=== PATIENT | male | born 1930 | race Caucasian/White ===

== ENCOUNTER 2018-02-25 09:52 | Observation (INO) ==
--- NOTE | 2018-02-25 10:45 | ED ---
HPI General Chief complaint: Syncope Stated complaint: Syncope x 2 days/Rt leg pain Time Seen by Provider: 02/25/18 10:42 Source: patient Mode of arrival: ambulatory Limitations: no limitations History of Present Illness HPI narrative: This 87-year-old male presents to the emergency department after a syncopal episode this morning. He had a syncopal episode yesterday also. Yesterday he was standing when he got very dizzy. He passed out quite abruptly and woke up on the floor. There were no witnesses to this event. He was continuing to feel very dizzy and he called his son to come get him. His son brought him to urgent care center where he was evaluated with blood work which was apparently normal. He did not have any chest pain or shortness of breath. This morning he was again standing in his kitchen and he had a second syncopal episode. This episode was preceded by dizziness for a few seconds but he does not feel dizzy now and has been able to walk. Yesterday he had prolonged dizziness which lasted for a couple of hours but then it ultimately resolved. He thinks that about 4 years ago he had an episode of syncope. He does not have any history of heart trouble he does take lovastatin. He had a hip replacement about 4 years ago and had a AAA repair 10-15 years ago. He has no known history of heart disease though his son thinks he had an irregular heartbeat one time when he went for a flight physical Related Data Home Medications Medication Instructions Recorded Confirmed lovastatin 40 mg PO DAILY 02/25/18 02/25/18 Allergies Allergy/AdvReac Type Severity Reaction Status Date / Time No Known Allergies Allergy Verified 02/25/18 11:24 Review of Systems ROS: all other systems reviewed are negative [facility] Medical History Medical History Atrial fibrillation (Acute) Enlarged prostate (Acute) High cholesterol (Acute) Surgical History Surgical History History of hip replacement (Acute) Hx of aortic aneurysm repair (Acute) Social History Social History Substance History: No History of Abuse Second Hand Smoke Exposure: No Smoking Status: Former smoker Tobacco Type: Cigarettes and Cigars How Often Do You Have a Drink Containing Alcohol: 4 or more times a week Recent Travel in [facility] within the Last 8 Weeks: No Recent Out of Country Travel within the Last 8 Weeks: No Exam Narrative Exam Narrative: GENERAL: Well-developed male SKIN: Focused skin assessment warm/dry. HEAD: Atraumatic. Normocephalic. EYES: Pupils equal and round. No scleral icterus. No injection or drainage. ENT: No nasal bleeding or discharge. Mucous membranes pink and moist. NECK: Trachea midline. No JVD. CARDIOVASCULAR: Irregular rate and rhythm. No murmur appreciated. RESPIRATORY: No accessory muscle use. Clear to auscultation. Breath sounds equal bilaterally. GASTROINTESTINAL: Abdomen soft, non-tender, nondistended. Hepatic and splenic margins not palpable. MUSCULOSKELETAL: No obvious deformities. No clubbing. No cyanosis. No edema. There is swelling and tenderness in the lateral aspect of the right ankle NEUROLOGICAL: Awake and alert. No obvious cranial nerve deficits. Motor grossly within normal limits. Normal speech. PSYCHIATRIC: Appropriate mood and affect; insight and judgment normal. Course Initial Documented Vital Signs Temperature 97.5 F L 02/25/18 09:58 Pulse Rate 94 H 02/25/18 09:58 Respiratory Rate 18 02/25/18 09:58 Blood Pressure 109/56 L 02/25/18 09:58 Pulse Oximetry 96 02/25/18 09:58 Last Documented Vital Signs Temperature 97.5 F L 02/25/18 10:50 Pulse Rate 89 02/25/18 12:48 Respiratory Rate 20 02/25/18 12:48 Blood Pressure 118/78 02/25/18 12:48 Pulse Oximetry 96 02/25/18 12:48 Medical Decision Making [facility] Narrative Medical decision making narrative: Patient appears stable at this time. His EKG does show atrial fibrillation with a rate of 92. The patient is not aware of history of atrial fibrillation. He is not having vertigo now but yesterday he had prolonged vertigo which lasted for several hours so I have ordered a MRI to assess for possible CVA Medical Screen Exam Complete: Yes Emergency Medical Condition: Yes Differential Diagnosis Differential Diagnosis: Differential includes dysrhythmia, syncope, aortic stenosis Lab Data Result diagrams: 02/25/18 10:00 02/25/18 10:00 Lab Results 02/25/18 02/25/18 02/25/18 Range/Units 10:00 10:00 10:00 CBC w Diff Auto diff final WBC 5.9 (4.0-11.0) th/mm3 RBC 4.98 (4.50-5.90) mil/mm3 Hgb 15.6 (13.0-17.0) gm/dL Hct 47.7 (39.0-51.0) % MCV 95.8 (80.0-100.0) fL MCH 31.3 (27.0-34.0) pg MCHC 32.7 (32.0-36.0) % RDW 12.2 (11.6-17.2) % Plt Count 128 L (150-450) th/mm3 MPV 8.6 (7.0-11.0) fL Neut % (Auto) 84.6 H (16.0-70.0) % Lymph % (Auto) 5.5 L (9.0-44.0) % [place] % (Auto) 9.4 H (0.0-8.0) % Eos % (Auto) 0.2 (0.0-4.0) % Baso % (Auto) 0.3 (0.0-2.0) % Neut # (Auto) 5.0 (1.8-7.7) th/mm3 Lymph # (Auto) 0.3 L (1.0-4.8) th/mm3 [place] # (Auto) 0.6 (0.0-0.9) th/mm3 Eos # (Auto) 0.0 (0.0-0.4) th/mm3 Baso # (Auto) 0.0 (0.0-0.2) th/mm3 WBC Differential . Differential Comment . PT 11.1 (9.8-11.6) sec INR 1.1 Ratio APTT 30.5 (23.4-31.7) sec Sodium 134 L (136-145) meq/L Potassium 3.9 (3.5-5.1) meq/L Chloride 99 (98-107) meq/L Carbon Dioxide 25.1 (21.0-32.0) meq/L Anion Gap 10 (5-15) meq/L BUN 11 (7-18) mg/dL Creatinine 0.86 (0.60-1.30) mg/dL Estimated GFR 84 L (>89) mL/min Random Glucose 130 H (74-106) mg/dL Calcium 8.0 L (8.5-10.1) mg/dL Magnesium 2.2 (1.5-2.5) mg/dL Total Bilirubin 1.6 H (0.2-1.0) mg/dL AST 34 (15-37) U/L ALT 22 (12-78) U/L Alkaline Phosphatase 65 (45-117) U/L Troponin I 0.02 (0.02-0.05) ng/mL B-Natriuretic Peptide (0-100) pg/mL Total Protein 6.5 (6.4-8.2) g/dL Albumin 3.4 (3.4-5.0) g/dL Ur Collection Type Urine Color (Yellw/Straw) Urine Clarity (Clear) Urine pH (5.0-8.5) Ur Specific [place] (1.002-1.035) Urine Protein (Neg-Trace) mg/dL Urine Glucose (UA) (Negative) mg/dL Urine Ketones (Negative) mg/dL Urine Occult Blood (Negative) Urine Nitrate (Negative) Urine Bilirubin (Negative) Urine Urobilinogen (Less than 2) mg/dL Ur Leukocyte Esterase (Negative) Urine RBC (0-3) /hpf Ur Squamous Epith Cells (0-5) /hpf Micro UA Comment Ur Microscopic Review Urine Culture Comments 02/25/18 02/25/18 Range/Units 10:00 11:40 CBC w Diff WBC (4.0-11.0) th/mm3 RBC (4.50-5.90) mil/mm3 Hgb (13.0-17.0) gm/dL Hct (39.0-51.0) % MCV (80.0-100.0) fL MCH (27.0-34.0) pg MCHC (32.0-36.0) % RDW (11.6-17.2) % Plt Count (150-450) th/mm3 MPV (7.0-11.0) fL Neut % (Auto) (16.0-70.0) % Lymph % (Auto) (9.0-44.0) % [place] % (Auto) (0.0-8.0) % Eos % (Auto) (0.0-4.0) % Baso % (Auto) (0.0-2.0) % Neut # (Auto) (1.8-7.7) th/mm3 Lymph # (Auto) (1.0-4.8) th/mm3 [place] # (Auto) (0.0-0.9) th/mm3 Eos # (Auto) (0.0-0.4) th/mm3 Baso # (Auto) (0.0-0.2) th/mm3 WBC Differential Differential Comment PT (9.8-11.6) sec INR Ratio APTT (23.4-31.7) sec Sodium (136-145) meq/L Potassium (3.5-5.1) meq/L Chloride (98-107) meq/L Carbon Dioxide (21.0-32.0) meq/L Anion Gap (5-15) meq/L BUN (7-18) mg/dL Creatinine (0.60-1.30) mg/dL Estimated GFR (>89) mL/min Random Glucose (74-106) mg/dL Calcium (8.5-10.1) mg/dL Magnesium (1.5-2.5) mg/dL Total Bilirubin (0.2-1.0) mg/dL AST (15-37) U/L ALT (12-78) U/L Alkaline Phosphatase (45-117) U/L Troponin I (0.02-0.05) ng/mL B-Natriuretic Peptide 106 H (0-100) pg/mL Total Protein (6.4-8.2) g/dL Albumin (3.4-5.0) g/dL Ur Collection Type Clean catch Urine Color Yellow (Yellw/Straw) Urine Clarity Clear (Clear) Urine pH 6.0 (5.0-8.5) Ur Specific [place] 1.010 (1.002-1.035) Urine Protein Negative (Neg-Trace) mg/dL Urine Glucose (UA) Negative (Negative) mg/dL Urine Ketones Negative (Negative) mg/dL Urine Occult Blood Trace (Negative) Urine Nitrate Negative (Negative) Urine Bilirubin Negative (Negative) Urine Urobilinogen 0.2 (Less than 2) mg/dL Ur Leukocyte Esterase Negative (Negative) Urine RBC 15-50 H (0-3) /hpf Ur Squamous Epith Cells 0-5 (0-5) /hpf Micro UA Comment Culture not ind Ur Microscopic Review Microscopic reviewed Urine Culture Comments Culture not ind Imaging Data Radiologist's impression: Chest X-Ray 02/25/18 10:42 CONCLUSION: 1. Apparent mild scarring at the right lung base. 2. No acute cardiopulmonary disease. Ankle X-Ray 02/25/18 10:45 CONCLUSION: Soft tissue swelling over lateral malleolus with no acute fracture or malalignment. Discharge Plan Discharge Disposition Patient Disposition: ED Admit(ED Internal Use Only) Discharge Condition Condition: Fair Discharge Order Discharge Orders: ED Use Only Admit Order (Routine); Ordered 02/25/18 Ordered By: Dami Mg Discharge Details Diagnosis: Syncope Physicians Team ED Provider: Dami Mg Primary Care Provider: NON STAFF,PROVIDER Attending Provider: Griffin Monteiro Discharge Interventions Interventions: ED Discharge Assessment Last Done: 02/25/18 13:03 Vital Signs Last Done: 02/25/18 12:48 Status ED Status: Admitted Observation Patient
[2018-02-25 11:05] LABS: Baso % (Auto) 0.3 % (0.0-2.0); Eos % (Auto) 0.2 % (0.0-4.0); Hematocrit 47.7 % (39.0-51.0); Hemoglobin 15.6 gm/dL (13.0-17.0); Lymph # (Auto) 0.3 th/mm3 (1.0-4.8); Lymph % (Auto) 5.5 % (9.0-44.0); Mean Corpuscular HGB Conc 32.7 % (32.0-36.0); Mean Corpuscular Hemoglobin 31.3 pg (27.0-34.0); Mean Corpuscular Volume 95.8 fL (80.0-100.0); Mean Platelet Volume 8.6 fL (7.0-11.0); Mono # (Auto) 0.6 th/mm3 (0.0-0.9); Mono % (Auto) 9.4 % (0.0-8.0); Neut % (Auto) 84.6 % (16.0-70.0); Platelet Count 128 th/mm3 (150-450); Red Blood Count 4.98 mil/mm3 (4.50-5.90); Red Cell Distribution Width 12.2 % (11.6-17.2); White Blood Count 5.9 th/mm3 (4.0-11.0)
--- NOTE | 2018-02-25 11:14 | XR ---
EXAM DATE: 02/25/2018 11:09 AM EST AGE/SEX: 87 years / Male INDICATIONS: Syncopal episode with fall yesterday, and again today. CLINICAL DATA: This is the patient's initial encounter. Patient reports that signs and symptoms have been present for 2 days and indicates a pain score of 0/10. MEDICAL/SURGICAL HISTORY: None. Abdominal aortic aneurysm repair. Hip replacement. COMPARISON: PO[facility], CT CHEST W/O CONTRAST, 10/02/2016. . FINDINGS: A single AP view of the chest demonstrates the lungs to be symmetrically aerated without evidence of mass, new confluent infiltrate or effusion. There is mild patchy opacity again noted in the right aurora ng base most characteristic of scarring. The cardiomediastinal contours are unremarkable. Osseous st ructures are intact. CONCLUSION: 1. Apparent mild scarring at the right lung base. 2. No acute cardiopulmonary disease. Electronically signed by: Griffin Shaffer MD 02/25/2018 11:13 AM EST
[2018-02-25 11:21] LABS: Activated Partial Thrombo Time 30.5 sec (23.4-31.7); INR 1.1 Ratio; Prothrombin Time 11.1 sec (9.8-11.6)
--- NOTE | 2018-02-25 11:22 | XR ---
EXAM DATE: 02/25/2018 11:07 AM EST AGE/SEX: 87 years / Male INDICATIONS: Left lateral ankle pain/swelling post syncopal episode with fall yesterday. CLINICAL DATA: This is the patient's initial encounter. Patient reports that signs and symptoms have been present for 2 days and indicates a pain score of 7/10. MEDICAL/SURGICAL HISTORY: None. Abdominal aortic aneurysm repair. Hip replacement. COMPARISON: No prior exams available for comparison. FINDINGS: Multiple views of the right ankle were obtained and demonstrate soft tissue swelling over lateral mal leolus with no acute fracture or malalignment. The ankle mortise is intact. There is a small spur off the inferior calcaneus at the site of attachment of plantar aponeurosis. There is diffuse osteopenia . CONCLUSION: Soft tissue swelling over lateral malleolus with no acute fracture or malalignment. Electronically signed by: Griffin Shaffer MD 02/25/2018 11:21 AM EST
[2018-02-25 11:31] LABS: Chloride 99 meq/L (98-107); Potassium 3.9 meq/L (3.5-5.1); Sodium 134 meq/L (136-145)
[2018-02-25 11:35] LABS: Albumin 3.4 g/dL (3.4-5.0); Anion Gap 10 meq/L (5-15); Blood Urea Nitrogen 11 mg/dL (7-18); Carbon Dioxide 25.1 meq/L (21.0-32.0); Glucose,Random 130 mg/dL (74-106); Magnesium 2.2 mg/dL (1.5-2.5)
[2018-02-25 11:38] LABS: Alanine Aminotransferase 22 U/L (12-78); Aspartate Aminotransferase 34 U/L (15-37); Glomerular Filtration Rate 84 mL/min (>89)
[2018-02-25 11:39] LABS: Total Protein 6.5 g/dL (6.4-8.2)
[2018-02-25 11:41] LABS: Alkaline Phosphatase 65 U/L (45-117)
[2018-02-25 11:43] LABS: Troponin I 0.02 ng/mL (0.02-0.05)
[2018-02-25 11:47] LABS: Bilirubin,Urine Negative (Negative); Clarity,Urine Clear (Clear); Color,Urine Yellow (Yellw/Straw); Glucose,Urine (UA) Negative (Negative); Leukocyte Esterase,Urine Negative (Negative); Nitrite,Urine Negative (Negative); Urobilinogen,Urine 0.2 mg/dL (Less than 2)
[2018-02-25 11:53] LABS: Squamous Epithelial Cell,Urine 0-5 /hpf (0-5)
[2018-02-25] MEDS ORDERED: Gadobutrol PF 10 MMOL/10 ML Vial (for RAD) IV.SIG ONE (12:03)
--- NOTE | 2018-02-25 12:13 | ECG ---
Date Performed: 02/25/2018 Time Performed: 10:50:43 PTAGE: 87 years EKG: ATRIAL FIBRILLATION LEFT ANTERIOR FASCICULAR BLOCK ABNORMAL ECG PREVIOUS TRACING : 05/21/2014 18.41 DOCTOR: Avery Ramirez Interpretating Date/Time 02/25/2018 12:11:41
--- NOTE | 2018-02-25 16:43 | P.HP ---
History of Present Illness Primary Care Physician: PROVIDER NON STAFF Chief Complaint: Syncope History of Present Illness: This is an 87-year-old male patient with a known medical history of BPH and hyperlipidemia presented to the ED status post syncopal episode at home. Patient states that he lives at home with his who has Alzheimer's, states that around Saturday night he noticed some chills and shakiness, he states he went to bed and awoke on Saturday morning and felt nauseous as well as dizzy, he states that he awoke on the floor. Does not recall events leading up to the syncopal episode. He states that on Saturday morning he had another syncopal episode and lost consciousness. At that time his found him and called their son who recommended evaluation in the emergency department. Patient denies hitting his head. He does state that he has been drinking and eating well. Denies any recent illness including fever, headache, chest pain, shortness of breath, abdominal pain, nausea, vomiting, diarrhea or dysuria. He follows closely with his PCP, was last seen 2 weeks ago and denies any new changes to his medications. Patient states that he does have a remote history of an arrhythmia, son is at bedside he states that he does possibly have an arrhythmia although is unsure of this. He does not follow with a switching operator. He does admit to a AAA repair roughly 15 years ago. At the time of assessment tonight patient is much improved, symptoms have resolved. EKG is showing controlled atrial fibrillation. Vital signs are stable. We will add a head CT as well as a neuro workup. Continue on cardiac telemetry. - Diagnosis (1) Syncope Review of Systems All other systems reviewed negative except as stated [facility] - History History Provided By: Patient - Medical History Medical History: Medical History (Last Reviewed 02/25/18 @ 16:52 by Amalia Montez) Atrial fibrillation Enlarged prostate High cholesterol - Surgical History Surgical History: Surgical History (Last Reviewed 02/25/18 @ 16:52 by Amalia Montez) History of hip replacement Hx of aortic aneurysm repair - Family History Family History: Family History (Last Updated 02/25/18 @ 16:52 by Amalia Montez) Other Family history non-contributory - Social History I have reviewed the patient's Social History: Yes - Tobacco History Second Hand Smoke Exposure: No Tobacco Use In Past 30 Days: No Smoking Status: Former smoker Tobacco Type: Cigarettes - Alcohol History How Often Do You Have a Drink Containing Alcohol: Never - Substance Use History Substance History: No History of Abuse - Travel History Recent Travel in the [place] Within the Last 8 Weeks: No Recent Travel Out of the Country Within the Last 8 Weeks: No - Immunization History Tetanus Immunization: Unsure Medications and Allergies Allergies Allergy/AdvReac Type Severity Reaction Status Date / Time No Known Allergies Allergy Verified 02/25/18 11:24 Home Medications Medication Instructions Recorded Confirmed Type lovastatin 40 mg PO DAILY 02/25/18 02/25/18 History Exam Vital signs: Vital Signs 02/25/18 09:58 02/25/18 10:50 02/25/18 10:57 Temperature 97.5 F L 97.5 F L Pulse Rate 94 H 94 H 80 Respiratory Rate 18 20 Blood Pressure 109/56 L 124/75 Pulse Oximetry 96 95 95 02/25/18 12:01 02/25/18 12:47 02/25/18 12:48 Temperature Pulse Rate 94 H 89 89 Respiratory Rate 20 20 Blood Pressure 114/68 118/78 Pulse Oximetry 96 96 Intake & Output 02/24/18 02/25/18 02/25/18 18:59 06:59 18:59 Weight 80 kg Narrative: GENERAL: Well-developed, well-nourished patient in [facility]. SKIN: Warm and dry. No rash. HEAD: Normocephalic. Atraumatic. EYES: Pupils equal and round. No scleral icterus. No injection or drainage. ENT: No nasal bleeding or discharge. Mucous membranes pink and moist. NECK: Supple. Trachea midline. CARDIOVASCULAR: Irregularly irregular rhythm. No murmur appreciated. RESPIRATORY: No accessory muscle use. Clear to auscultation. Breath sounds equal bilaterally. GASTROINTESTINAL: Abdomen soft, non-tender, nondistended. Normoactive bowel sounds x4. MUSCULOSKELETAL: No obvious deformities. Extremities without clubbing, cyanosis , or edema. NEUROLOGICAL: Awake and alert. No obvious cranial nerve deficits. Motor grossly within normal limits. 5/5 muscle strength in bilateral upper and lower extremities. Normal speech. PSYCHIATRIC: Appropriate mood and affect; insight and judgment normal. Results - Labs CBC & Chem 7: 02/25/18 10:00 02/25/18 10:00 Labs: Laboratory Results - last 24 hr 02/25/18 02/25/18 02/25/18 10:00 10:00 10:00 CBC w Diff Auto diff final WBC 5.9 RBC 4.98 Hgb 15.6 Hct 47.7 MCV 95.8 MCH 31.3 MCHC 32.7 RDW 12.2 Plt Count 128 L MPV 8.6 Neut % (Auto) 84.6 H Lymph % (Auto) 5.5 L [place] % (Auto) 9.4 H Eos % (Auto) 0.2 Baso % (Auto) 0.3 Neut # (Auto) 5.0 Lymph # (Auto) 0.3 L [place] # (Auto) 0.6 Eos # (Auto) 0.0 Baso # (Auto) 0.0 WBC Differential . Differential Comment . PT 11.1 INR 1.1 APTT 30.5 Sodium 134 L Potassium 3.9 Chloride 99 Carbon Dioxide 25.1 Anion Gap 10 BUN 11 Creatinine 0.86 Estimated GFR 84 L Random Glucose 130 H Calcium 8.0 L Magnesium 2.2 Total Bilirubin 1.6 H AST 34 ALT 22 Alkaline Phosphatase 65 Troponin I 0.02 B-Natriuretic Peptide Total Protein 6.5 Albumin 3.4 Ur Collection Type Urine Color Urine Clarity Urine pH Ur Specific [place] Urine Protein Urine Glucose (UA) Urine Ketones Urine Occult Blood Urine Nitrate Urine Bilirubin Urine Urobilinogen Ur Leukocyte Esterase Urine RBC Ur Squamous Epith Cells Micro UA Comment Ur Microscopic Review Urine Culture Comments 02/25/18 02/25/18 10:00 11:40 CBC w Diff WBC RBC Hgb Hct MCV MCH MCHC RDW Plt Count MPV Neut % (Auto) Lymph % (Auto) [place] % (Auto) Eos % (Auto) Baso % (Auto) Neut # (Auto) Lymph # (Auto) [place] # (Auto) Eos # (Auto) Baso # (Auto) WBC Differential Differential Comment PT INR APTT Sodium Potassium Chloride Carbon Dioxide Anion Gap BUN Creatinine Estimated GFR Random Glucose Calcium Magnesium Total Bilirubin AST ALT Alkaline Phosphatase Troponin I B-Natriuretic Peptide 106 H Total Protein Albumin Ur Collection Type Clean catch Urine Color Yellow Urine Clarity Clear Urine pH 6.0 Ur Specific [place] 1.010 Urine Protein Negative Urine Glucose (UA) Negative Urine Ketones Negative Urine Occult Blood Trace Urine Nitrate Negative Urine Bilirubin Negative Urine Urobilinogen 0.2 Ur Leukocyte Esterase Negative Urine RBC 15-50 H Ur Squamous Epith Cells 0-5 Micro UA Comment Culture not ind Ur Microscopic Review Microscopic reviewed Urine Culture Comments Culture not ind - Imaging Impressions Chest X-Ray 02/25/18 10:42 CONCLUSION: 1. Apparent mild scarring at the right lung base. 2. No acute cardiopulmonary disease. Ankle X-Ray 02/25/18 10:45 CONCLUSION: Soft tissue swelling over lateral malleolus with no acute fracture or malalignment. Caprini VTE Risk Assessment Caprini VTE Risk Assessment: Moderate/High Risk (score >= 2) Caprini Risk Assessment Model: Point Value = 1 Point Value = 2 Point Value = 3 Point Value = 5 Age 41-60 Minor surgery BMI > 25 kg/m2 Swollen legs Varicose veins or History of unexplained or recurrent spontaneous Oral contraceptives or hormone replacement Sepsis (< 1 month) Serious lung disease, including pneumonia (< 1 month) Abnormal pulmonary function Acute myocardial infarction Congestive heart failure (< 1 month) History of inflammatory bowel disease Medical patient at bed rest Age 61-74 Arthroscopic surgery Major open surgery (> 45 min) Laparoscopic surgery (> 45 min) Malignancy Confined to bed (> 72 hours) Immobilizing plaster cast Central venous access Age >= 75 History of VTE Family history of VTE Factor V Leiden Prothrombin 22504Y Lupus anticoagulant Anticardiolipin antibodies Elevated serum homocysteine Heparin-induced thrombocytopenia Other congenital or acquired thrombophilia Stroke (< 1 month) Elective arthroplasty Hip, pelvis, or leg fracture Acute spinal cord injury (< 1 month) Prophylaxis Regimen: Total Risk Factor Score Risk Level Prophylaxis Regimen 0-1 Low Early ambulation 2 Moderate Order ONE of the following: *Sequential Compression Device (SCD) *Heparin 5000 units SQ BID 3-4 Higher Order ONE of the following medications: *Heparin 5000 units SQ TID *Enoxaparin/Lovenox 40 mg SQ daily (WT < 150 kg, CrCl > 30 mL/min) *Enoxaparin/Lovenox 30 mg SQ daily (WT < 150 kg, CrCl > 10-29 mL/min) *Enoxaparin/Lovenox 30 mg SQ BID (WT < 150 kg, CrCl > 30 mL/min) AND/OR *Sequential Compression Device (SCD) 5 or more Highest Order ONE of the following medications: *Heparin 5000 units SQ TID (Preferred with Epidurals) *Enoxaparin/Lovenox 40 mg SQ daily (WT < 150 kg, CrCl > 30 mL/min) *Enoxaparin/Lovenox 30 mg SQ daily (WT < 150 kg, CrCl > 10-29 mL/min) *Enoxaparin/Lovenox 30 mg SQ BID (WT < 150 kg, CrCl > 30 mL/min) AND *Sequential Compression Device (SCD) Assessment and Plan - Assessment (1) Syncope Code(s): R55 - Syncope and collapse Status: Acute - Plan This is an 87-year-old male patient who presented to the ED with: Syncopal episode x 2 Rule out neurological versus cardiovascular etiology -Patient admits to 2 syncopal episodes in the last 2 days. Admits to associated dizziness as well as nausea. -Will add a head CT to workup. Start neuro workup including carotid ultrasound , echocardiogram, TSH, lipid profile. -Will check orthostatic blood pressures. -EKG reviewed showing controlled atrial fibrillation. Patient does admit to a remote history of arrhythmia although it is unsure if this was atrial fibrillation or not. Denies any anticoagulation use. -Will continue on cardiac telemetry, monitor for any arrhythmias overnight. May consider consultation to cardiology/neurology depending on workup results. Does not follow with a switching operator. -BMP reviewed, essentially unremarkable. UA negative. Will trend troponins. Initial troponin negative. -Ensure hydration, gentle hydration. -PT evaluation ordered, pending. -Supportive care. Right ankle pain and swelling -Suspect secondary to syncopal episode. -Right x-ray of ankle reviewed showing soft tissue swelling no acute fracture. -Supportive care, encourage elevation. Hyperlipidemia, chronic: Will continue home statin. DVT prophylaxis: SCDs. Heparin. (1) Syncope Qualifiers: Syncope type: unspecified Qualified Code(s): R55 - Syncope and collapse
[2018-02-25] MEDS ORDERED: Sod Chloride 0.9% Inj 1,000 ML IV.CONT SCH (17:00)
--- NOTE | 2018-02-25 17:31 | MR ---
EXAM DATE: 02/25/2018 5:24 PM EST AGE/SEX: 87 years / Male INDICATIONS: Vertigo. SYNCOPE TIMES 2. CLINICAL DATA: This is the patient's initial encounter. Patient reports that signs and symptoms have been present for 2 days and indicates a pain score of 0/10. MEDICAL/SURGICAL HISTORY: . Afib. Abdominal aortic aneurysm repair. Hip surgery. COMPARISON: No prior exams available for comparison. TECHNIQUE: Multiplanar, multisequence examination of the brain was performed without and with 9 ml Ga davist (gadobutrol) contrast as a single exam dose. FINDINGS: Cerebrum: The ventricles are normal for age with atrophy. No evidence of midline shift, mass lesion , hemorrhage or acute infarction. No extraaxial fluid collections are seen. The pituitary gland and suprasellar cistern are normal in configuration. White Matter: Chronic small vessel ischemic changes are noted with increased signal in the periventr icular white matter. Posterior Fossa: The cerebellum and brainstem are intact. The 4th ventricle is midline. The cerebel lopontine angle is unremarkable. The cerebellar tonsils are normal in position. Diffusion Imaging: No focal areas of restricted diffusion are seen. No evidence of acute infarction . Extracranial: The visualized portions of the orbits are unremarkable. Mucosal thickening is present in the left maxillary sinus. Post Contrast: No abnormal areas of parenchymal or dural enhancement. No evidence of blood-brain ba rrier breakdown. CONCLUSION: 1. No acute hemorrhage, mass or stroke. 2. Atrophy and chronic small vessel ischemic change. Electronically signed by: Griffin Shaffer MD 02/25/2018 5:29 PM EST
[2018-02-25 18:13] LABS: Troponin I 0.02 ng/mL (0.02-0.05)
--- NOTE | 2018-02-25 18:18 | CT ---
EXAM DATE: 02/25/2018 6:12 PM EST AGE/SEX: 87 years / Male INDICATIONS: Syncope. CLINICAL DATA: This is the patient's initial encounter. Patient reports that signs and symptoms have been present for 1 day and indicates a pain score of 0/10. MEDICAL/SURGICAL HISTORY: Hypercholesterolemia. Atrial fibrillation. Abdominal aortic aneurysm rep air. Hip repair. RADIATION DOSE: 59.31 CTDI (mGy) COMPARISON: No prior exams available for comparison. TECHNIQUE: CT of the head without contrast. Using automated exposure control and adjustment of the mA and/or kV according to patient size, radiation dose was kept as low as reasonably achievable to ob tain optimal diagnostic quality images. DICOM format image data is available electronically for revi ew and comparison. FINDINGS: Cerebrum: The ventricles are normal for age. Areas of low-density in the periventricular white matte r. No evidence of midline shift, mass lesion, hemorrhage or acute infarction. No extraaxial fluid co llections are seen. Posterior Fossa: The cerebellum and brainstem are intact. The 4th ventricle is midline. The cerebe llopontine angle is unremarkable. Extracranial: The visualized portion of the orbits is intact. Skull: The calvaria is intact. No evidence of skull fracture. CONCLUSION: 1. Nonspecific white matter changes. . Electronically signed by: Jorge Kendall MD 02/25/2018 6:17 PM EST
[2018-02-25 18:27] LABS: CKMB Percent 0.2 % (0.0-4.0); Creatine Kinase MB 1.5 ng/mL (0.5-3.6)
[2018-02-25 22:57] LABS: Troponin I 0.03 ng/mL (0.02-0.05)
[2018-02-25 23:08] LABS: CKMB Percent 0.2 % (0.0-4.0); Creatine Kinase MB 1.1 ng/mL (0.5-3.6)
[2018-02-26] MEDS ORDERED: Heparin - SQ 10,000 UNITS/ML Vial SQ SCH (09:00)
[2018-02-26 10:29] LABS: Chol/HDL Ratio 3.62 Ratio; HDL Cholesterol 44.7 mg/dL (40.0-60.0)
--- NOTE | 2018-02-26 11:40 | P.PNIM ---
Subjective Interval history: Follow up syncopal episode. Patient seen and examined, sitting in bed comfortably no apparent distress. No acute events overnight. No palpitations or chest pain. No shortness of breath. Eating well without any abdominal pain nausea or vomiting. Attempting to obtain records from PCP to determine if patient has a history of H fibrillation and if he has a machine adjuster leader, patient is unaware. Vital signs stable. Afebrile. Physical Exam Vital signs: Vital Signs 02/25/18 12:01 02/25/18 12:47 02/25/18 12:48 Temperature Pulse Rate 94 H 89 89 Respiratory Rate 20 20 Blood Pressure 114/68 118/78 Pulse Oximetry 96 96 02/25/18 18:00 02/25/18 20:00 02/26/18 00:00 Temperature 98.0 F 99.8 F H 100.2 F H Pulse Rate 93 H 94 H 105 H Respiratory Rate 18 18 18 Blood Pressure 127/74 132/83 121/67 Pulse Oximetry 97 94 L 95 02/26/18 04:00 02/26/18 08:00 Temperature 98.1 F 96.1 F L Pulse Rate 95 H 99 H Respiratory Rate 18 18 Blood Pressure 129/76 141/78 H Pulse Oximetry 95 96 Intake & Output 02/25/18 02/26/18 02/26/18 18:59 06:59 18:59 Intake Total 1480 / 1480 Output Total 1800 / 1800 Balance -320 / -320 Weight 80 kg 55.8 kg Intake: Oral 1480 / 1480 Output: Urine 1800 / 1800 Narrative: GENERAL: Well-developed, well-nourished patient in [facility]. SKIN: Warm and dry. No rash. HEAD: Normocephalic. Atraumatic. EYES: Pupils equal and round. No scleral icterus. No injection or drainage. ENT: No nasal bleeding or discharge. Mucous membranes pink and moist. NECK: Supple. Trachea midline. CARDIOVASCULAR: Irregularly irregular rhythm. No murmur appreciated. RESPIRATORY: No accessory muscle use. Clear to auscultation. Breath sounds equal bilaterally. GASTROINTESTINAL: Abdomen soft, non-tender, nondistended. Normoactive bowel sounds x4. MUSCULOSKELETAL: No obvious deformities. Extremities without clubbing, cyanosis , or edema. NEUROLOGICAL: Awake and alert. No obvious cranial nerve deficits. Motor grossly within normal limits. 5/5 muscle strength in bilateral upper and lower extremities. Normal speech. PSYCHIATRIC: Appropriate mood and affect; insight and judgment normal. Results - Labs CBC & Chem 7: 02/25/18 10:00 02/25/18 10:00 Laboratory Results - last 24 hr 02/25/18 02/25/18 02/25/18 10:00 10:00 11:40 Carbon Dioxide 25.1 Anion Gap 10 BUN 11 Creatinine 0.86 Estimated GFR 84 L Random Glucose 130 H Calcium 8.0 L Magnesium 2.2 Total Bilirubin 1.6 H AST 34 ALT 22 Alkaline Phosphatase 65 Total Creatine Kinase CK-MB (CK-2) CK-MB (CK-2) % Troponin I 0.02 B-Natriuretic Peptide 106 H Total Protein 6.5 Albumin 3.4 Triglycerides Cholesterol LDL Cholesterol, Calc HDL Cholesterol Cholesterol/HDL Ratio TSH Ur Collection Type Clean catch Urine Color Yellow Urine Clarity Clear Urine pH 6.0 Ur Specific Kerby 1.010 Urine Protein Negative Urine Glucose (UA) Negative Urine Ketones Negative Urine Occult Blood Trace Urine Nitrate Negative Urine Bilirubin Negative Urine Urobilinogen 0.2 Ur Leukocyte Esterase Negative Urine RBC 15-50 H Ur Squamous Epith Cells 0-5 Micro UA Comment Culture not ind Ur Microscopic Review Microscopic reviewed Urine Culture Comments Culture not ind 02/25/18 02/25/18 02/25/18 17:30 17:30 22:30 Carbon Dioxide Anion Gap BUN Creatinine Estimated GFR Random Glucose Calcium Magnesium Total Bilirubin AST ALT Alkaline Phosphatase Total Creatine Kinase 796 H 670 H CK-MB (CK-2) 1.5 1.1 CK-MB (CK-2) % 0.2 0.2 Troponin I 0.02 0.03 B-Natriuretic Peptide Total Protein Albumin Triglycerides 118 Cholesterol 162 LDL Cholesterol, Calc 94 HDL Cholesterol 44.7 Cholesterol/HDL Ratio 3.62 TSH Ur Collection Type Urine Color Urine Clarity Urine pH Ur Specific Kerby Urine Protein Urine Glucose (UA) Urine Ketones Urine Occult Blood Urine Nitrate Urine Bilirubin Urine Urobilinogen Ur Leukocyte Esterase Urine RBC Ur Squamous Epith Cells Micro UA Comment Ur Microscopic Review Urine Culture Comments 02/25/18 22:30 Carbon Dioxide Anion Gap BUN Creatinine Estimated GFR Random Glucose Calcium Magnesium Total Bilirubin AST ALT Alkaline Phosphatase Total Creatine Kinase CK-MB (CK-2) CK-MB (CK-2) % Troponin I B-Natriuretic Peptide Total Protein Albumin Triglycerides Cholesterol LDL Cholesterol, Calc HDL Cholesterol Cholesterol/HDL Ratio TSH 1.900 Ur Collection Type Urine Color Urine Clarity Urine pH Ur Specific Kerby Urine Protein Urine Glucose (UA) Urine Ketones Urine Occult Blood Urine Nitrate Urine Bilirubin Urine Urobilinogen Ur Leukocyte Esterase Urine RBC Ur Squamous Epith Cells Micro UA Comment Ur Microscopic Review Urine Culture Comments - Imaging Impressions Head CT 02/25/18 00:00 CONCLUSION: 1. Nonspecific white matter changes. . Head MRI 02/25/18 10:42 CONCLUSION: 1. No acute hemorrhage, mass or stroke. 2. Atrophy and chronic small vessel ischemic change. Assessment and Plan - Assessment (1) Syncope Code(s): R55 - Syncope and collapse Status: Acute - Plan This is an 87-year-old male patient who presented to the ED with: Syncopal episode x 2 Rule out neurological versus cardiovascular etiology -Patient admits to 2 syncopal episodes in the last 2 days. Admits to associated dizziness as well as nausea. -Head CT negative. Head MRI negative. -Awaiting echocardiogram. Follow. -TSH normal. -Lipid panel negative. -Awaiting carotid ultrasound. -Check orthostatic blood pressures. -EKG reviewed showing controlled atrial fibrillation. Patient does admit to a remote history of arrhythmia although it is unsure if this was atrial fibrillation or not. Denies any anticoagulation use. -Will continue on cardiac telemetry, monitor for any arrhythmias. None overnight. -May consider consultation to cardiology/neurology depending on workup results. -Patient states that he might have a remote history of atrial fibrillation, has seen a machine adjuster leader although unaware of name. Records requested from PCP office. Awaiting response. -BMP reviewed, essentially unremarkable. UA negative. Troponin trend negative. -Ensure hydration, gentle hydration overnight. DC now, monitor for overload. -PT evaluation ordered, recommendations for home health care when stable. -Supportive care. Mild rhabdomyolysis -CPK elevated. Gentle hydration overnight. Was given over 1/2 L NS hydration. -This may be the cause of his syncopal episode. Tolerating p.o. intake. Monitor I's and O's. -Recheck CPK. Right ankle pain and swelling, improving. -Suspect secondary to syncopal episode. -Right x-ray of ankle reviewed showing soft tissue swelling no acute fracture. -Supportive care, encourage elevation. Hyperlipidemia, chronic: Will continue home statin. DVT prophylaxis: SCDs. Heparin. (1) Syncope Qualifiers: Syncope type: unspecified Qualified Code(s): R55 - Syncope and collapse
--- NOTE | 2018-02-26 13:41 | ECHRPT ---
Indication: SYNCOPE CONCLUSIONS The left ventricular systolic function is normal with an estimated ejection fraction in the range of 55-60%. Normal left ventricular size. Wall thickness is measured at the upper limits of normal. No regional wall motion abnormalities are present. The right ventricle is mildly dilated. The right ventricular systoilc function is normal. Trace mitral valve regurgitation. Aortic valve sclerosis is present. Mild aortic valve regurgitation. There is trace tricuspid valve regurgitation. The estimated pulmonary arterial pressure is 35.4 mmHg. BP: / HR: Rhythm: MEASUREMENTS (Male / Female) Normal Values Technical Quality: 2D ECHO LV Diastolic Diameter PLAX 4.6 cm 4.2 - 5.9 / 3.9 - 5.3 cm LV Systolic Diameter PLAX 3.3 cm IVS Diastolic Thickness 1.2 cm 0.6 - 1.0 / 0.6 - 0.9 cm LVPW Diastolic Thickness 1.2 cm 0.6 - 1.0 / 0.6 - 0.9 cm LV Relative Wall Thickness 0.5 LVOT Diameter 2.0 cm LA Systolic Diameter LX 4.3 cm 3.0 - 4.0 / 2.7 - 3.8 cm LV Ejection Fraction MOD 4C 52.9 % LV Ejection Fraction 4C AL 53.9 % M-MODE Aortic Root Diameter MM 2.5 cm LA Systolic Diameter MM 4.5 cm LA Ao Ratio MM 1.8 AV Cusp Separation MM 1.9 cm DOPPLER AI Peak Velocity 221.0 cm/s AI Peak Gradient 19.5 mmHg AI Pressure Half Time 373.5 ms MV Area PHT 4.8 cm LV E' Septal Velocity 7.7 cm/s TR Peak Velocity 252.0 cm/s TR Peak Gradient 25.4 mmHg Right Atrial Pressure 10.0 mmHg Pulmonary Artery Systolic Pressu 35.4 mmHg Right Ventricular Systolic Press 35.4 mmHg PV Peak Velocity 88.2 cm/s PV Peak Gradient 3.1 mmHg FINDINGS LEFT VENTRICLE The left ventricular systolic function is normal with an estimated ejection fraction in the range of 55-60%. Normal left ventricular size. Wall thickness is measured at the upper limits of normal. No regional wall motion abnormalities are present. RIGHT VENTRICLE The right ventricle is mildly dilated. The right ventricular systoilc function is normal. LEFT ATRIUM The left atrial size is normal. RIGHT ATRIUM The right atrial size is normal. ATRIAL SEPTUM Normal atrial septal thickness without atrial level shunting by limited color doppler interrogation. AORTA The aortic root and proximal ascending aorta are normal in size on limited imaging. MITRAL VALVE Structurally normal mitral valve. Trace mitral valve regurgitation. AORTIC VALVE Trileaflet aortic valve. Aortic valve sclerosis is present. Mild aortic valve regurgitation. TRICUSPID VALVE Structurally normal tricuspid valve. There is trace tricuspid valve regurgitation. The estimated pulmonary arterial pressure is 35.4 mmHg. PULMONARY VALVE No pulmonary valve regurgitation or stenosis. VESSELS The inferior vena cava is normal in size. PERICARDIUM No pericardial effusion. Avery Ramirez MD, FACC (Electronically Signed) Final Date:26 February 2018 13:40
--- NOTE | 2018-02-26 13:42 | US ---
EXAM DATE: 02/26/2018 1:16 PM EST AGE/SEX: 87 years / Male INDICATIONS: Syncope. CLINICAL DATA: This is the patient's initial encounter. Patient reports that signs and symptoms have been present for 1 day and indicates a pain score of 0/10. MEDICAL/SURGICAL HISTORY: . Hypercholesterolemia. Atrial fibrillation. . Abdominal aortic aneu rysm repair. Hip repair. COMPARISON: [facility], US AORTA, 06/21/2016. . VELOCITY PARAMETERS: ICA/CCA Ratio: Right 0.80 , Left 0.89 ICA: Right 81 cm/sec, Left 80 cm/sec CCA: Right 93 cm/sec, Left 89 cm/sec ECA: Right 99 cm/sec, Left 45 cm/sec Vertebral: Right 48 cm/sec antegrade, Left 33 cm/sec antegrade FINDINGS: RIGHT CAROTID: There is no evidence for a hemodynamically significant carotid stenosis. Minimal int imal hyperplasia is present with scattered calcific plaque. LEFT CAROTID: There is no evidence for a hemodynamically significant carotid stenosis. Minimal inti mal hyperplasia is present with scattered calcific plaque. Flow is antegrade in both vertebral arteries. There are no ancillary masses or adenopathy. CONCLUSION: Negative examination for a hemodynamically significant carotid stenosis. Alec Rowan MD FACR Electronically signed by: Alec Rowan MD 02/26/2018 1:41 PM EST
--- NOTE | 2018-02-26 15:17 | P.DCO ---
- Diagnosis (1) Dehydration Status: Acute (2) Atrial fibrillation Status: Acute (3) Syncope Status: Acute - Physical Therapy Order: Evaluate and treat, Improve ambulation, Strength and gait training - Home Health Nursing Order: Medical education, Signs/symptoms of disease process, Medication education-adverse effect, Nursing assessment with vital signs - Case Management Consult Case Management Consult-Home Health: Yes - Certification I have seen patient Maco Lao on 02/26/18. My clinical findings support the need for the requested home health care services because: Deconditioned with increased weakness I certify that my clinical findings support that this patient is homebound because: Unsteady gait/balance (3) Syncope Qualifiers: Syncope type: unspecified Qualified Code(s): R55 - Syncope and collapse
--- NOTE | 2018-02-26 22:08 | ECG ---
Date Performed: 02/25/2018 Time Performed: 22:26:29 PTAGE: 87 years EKG: ATRIAL FIBRILLATION LEFT ANTERIOR FASCICULAR BLOCK MINIMAL VOLTAGE CRITERIA FOR LVH, CONSID ER NORMAL VARIANT ABNORMAL ECG PREVIOUS TRACING : 02/25/2018 17.39 Since the previous tracing, no significant change noted DOCTOR: Joel Walters Interpretating Date/Time 02/26/2018 22:07:22
--- NOTE | 2018-02-26 22:33 | ECG ---
Date Performed: 02/25/2018 Time Performed: 17:39:21 PTAGE: 87 years EKG: ATRIAL FIBRILLATION WITH RAPID VENTRICULAR RESPONSE LEFT ANTERIOR FASCICULAR BLOCK PROBABLE SEPTAL MYOCARDIAL INFARCTION ABNORMAL ECG PREVIOUS TRACING : 02/25/2018 10.50 Since the previous tracing, no significant change noted DOCTOR: Joel Walters Interpretating Date/Time 02/26/2018 22:32:07
== END 2018-02-26 16:06 | disposition home health service (06) ==
LOC: PHED 09:52 → PHEDA 09:52 → PH3 13:00
PROVIDERS: ADMIT Hospitalist; ATTEND Hospitalist